=== PATIENT | female | born 1950 | race Caucasian/White ===

== ENCOUNTER 2018-01-06 15:06 | Emergency (ER) | payer BC, MEDICARE ==
[2018-01-06] MEDS ORDERED: Ondansetron 4 MG/2 ML SDV IVPUSH ONE (15:26)
[2018-01-06] MEDS ORDERED: Ketorolac 30 MG/ML SDV IVPUSH ONE (15:26)
[2018-01-06] MEDS ORDERED: SUMAtriptan 6 MG/0.5 ML SDV SUBCUT ONE (15:31)
--- NOTE | 2018-01-06 15:41 | EDM.PDOC ---
ED HPI GENERAL MEDICAL PROBLEM - General Chief Complaint: Gastrointestinal Problem Stated Complaint: HEADACHE, VOMITING, NAUSEA, GAS Time Seen by Provider: 01/06/18 15:10 Source of Information: Reports: Patient, Family History Limitations: Reports: No Limitations - History of Present Illness INITIAL COMMENTS - FREE TEXT/NARRATIVE: 67 y.o.w.f came to the due to H/A and photophobia. Pt was transferred to the ed because his SBP was 185 at he clinic. Pt's last BP was taken 6 weeks ago. At that time her BP was 130.70. Pt is nauseated since Sunday and had poor po intake since then. He headache is located at her left forehead. Pt had Migraine H/A in the past. Pt did not take anything for pain/HTN. No trauma. No other acute medical issues. BP 189/98 Pulse 74 RR 18 Temp 36.6 Pulse ox 98% on RA. Onset Date: 01/04/18 Onset Time: 10:00 Duration: Day(s):, Intermittent Location: Reports: Abdomen Quality: Reports: Ache, Burning Severity: Moderate Improves with: Reports: Medication, Rest Worsens with: Reports: Movement Context: Reports: Other - Related Data Allergies Allergy/AdvReac Type Severity Reaction Status Date / Time Sulfa (Sulfonamide Allergy Rash Verified 01/06/18 15:25 Antibiotics) Home Meds: Home Meds FLUoxetine [PROzac] 20 mg PO DAILY 05/09/16 [History] Simvastatin 10 mg PO DAILY 05/09/16 [History] Acetaminophen [Tylenol Extra Strength] 500 mg PO ASDIRECTED PRN 05/10/16 [ History] Losartan [Cozaar] 25 mg PO DAILY #10 tab 01/06/18 [Rx] Metoclopramide HCl [Reglan] 10 mg PO DAILY PRN #10 tablet 01/06/18 [Rx] Omeprazole 20 mg PO DAILY 01/06/18 [History] Past Medical History HEENT History: Reports: Impaired Vision Cardiovascular History: Reports: High Cholesterol 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 ASSISTANT History: SYMPTOMATIC MENOPAUSAL STATE Other Neuro History: MIGRAINES Psychiatric History: Reports: Depression - Infectious Disease History Infectious Disease History: Reports: Chicken Pox, Measles, Mumps - Past Surgical History Female Surgical History: Reports: Section Male Surgical History: Reports: Other (See Below) Social & Family History - Caffeine Use Caffeine Use: Reports: Coffee, Soda ED ROS GENERAL - Review of Systems Review Of Systems: See Below Constitutional: Reports: Weakness HEENT: Reports: No Symptoms Respiratory: Reports: No Symptoms Cardiovascular: Reports: Blood Pressure Problem Endocrine: Reports: No Symptoms GI/Abdominal: Reports: Nausea (no vomiting) : Reports: No Symptoms Musculoskeletal: Reports: No Symptoms Skin: Reports: No Symptoms Neurological: Reports: No Symptoms Psychiatric: Reports: No Symptoms Hematologic/Lymphatic: Reports: No Symptoms Immunologic: Reports: No Symptoms ED EXAM, GI/ABD - Physical Exam Exam: See Below Exam Limited By: No Limitations General Appearance: Alert, WD/WN, Moderate Distress Eyes: Bilateral: Normal Appearance Ears: Normal External Exam Nose: Normal Inspection Throat/Mouth: Normal Inspection, Normal Lips, Normal Voice, No Airway Compromise Head: Atraumatic, Normocephalic Neck: Normal Inspection, Supple, Non-Tender, Full Range of Motion Respiratory/Chest: No Respiratory Distress, Lungs Clear, Normal Breath Sounds, Chest Non-Tender Cardiovascular: Normal Peripheral Pulses, Regular Rate, Rhythm, No Edema, No Gallop, No Murmur GI/Abdominal Exam: Normal Bowel Sounds, Soft, Non-Tender, No Abnormal Bruit (Female) Exam: Deferred Rectal (Female) Exam: Deferred Back Exam: Normal Inspection, Full Range of Motion Extremities: Normal Inspection, Normal Range of Motion, Non-Tender, No Pedal Edema Neurological: Alert, Oriented, CN II-XII Intact, Normal Cognition, Normal Gait Psychiatric: Normal Affect, Normal Mood Skin Exam: Warm, Dry, Intact, Normal Color, No Rash Lymphatic: No Adenopathy Course - Vital Signs Text/Narrative:: 67 y.o.w.f came to the due to H/A and photophobia. Pt was transferred to the ed because his SBP was 185 at he clinic. Pt's last BP was taken 6 weeks ago. At that time her BP was 130.70. Pt is nauseated since Sunday and had poor po intake since then. He headache is located at her left forehead. Pt had Migraine H/A in the past. Pt did not take anything for pain/HTN. No trauma. Not worst H/ A. No other acute medical issues. BP 189/98 Pulse 74 RR 18 Temp 36.6 Pulse ox 98 % on RA. PE: WNWD W F with photophobie, Headache, photophobia and nause. Imaging: Not indicated Labs: CBC wnl, Neutrphills are 84%. BMP was nl, UA was pos for microcytic hematuria Impression: HTN, Migraine H/A. Microcytic hematuria Tx: Zofran, Reglan. Toradol, Imitrex. Labetolol Reexam: H/A and nausea subsided, BP improved to 143/72 Plan: D/C with instructions Last Recorded V/S: Last Vital Signs Temp 36.9 C 01/06/18 15:10 Pulse 74 01/06/18 15:10 Resp 16 01/06/18 15:10 BP 189/98 H 01/06/18 15:10 Pulse Ox 98 01/06/18 15:10 - Orders/Labs/Meds Orders: Active Orders 24 hr Category Date Time Status UA W/MICROSCOPIC [URIN] Stat Lab 01/06/18 17:00 Ordered Labs: Laboratory Tests 01/06/18 01/06/18 01/06/18 Range/Units 15:35 15:35 17:00 WBC 5.8 (4.5-12.0) X10-3/uL RBC 4.29 (3.23-5.20) x10(6)uL Hgb 12.9 D (11.5-15.5) g/dL Hct 38.0 D (30.0-51.3) % MCV 88.7 (80-96) fL MCH 30.1 (27.7-33.6) pg MCHC 33.9 (32.2-35.4) g/dL RDW 12.8 (11.5-15.5) % Plt Count 287 (125-369) X10(3)uL MPV 8.2 (7.4-10.4) fL Neut % (Auto) 84.5 H (46-82) % Lymph % (Auto) 12.2 L (13-37) % Tucker % (Auto) 3.1 L (4-12) % Eos % (Auto) 0 L (1.0-5.0) % Baso % (Auto) 0 (0-2) % Neut # (Auto) 4.9 (1.6-8.3) # Lymph # (Auto) 0.7 (0.6-5.0) # Tucker # (Auto) 0.2 (0.0-1.3) # Eos # (Auto) 0.0 (0.0-0.8) # Baso # (Auto) 0.0 (0.0-0.2) # Sodium 138 (135-145) mmol/L Potassium 4.6 (3.5-5.3) mmol/L Chloride 100 (100-110) mmol/L Carbon Dioxide 26 (21-32) mmol/L BUN 12 (7-18) mg/dL Creatinine 0.7 (0.55-1.02) mg/dL Est Cr Clr Drug Dosing 67.34 mL/min Estimated GFR (MDRD) > 60 (>60) BUN/Creatinine Ratio 17.1 (9-20) Glucose 108 (80-116) mg/dL Calcium 8.9 (8.6-10.2) mg/dL Urine Color Yellow (YELLOW) Urine Appearance Clear (CLEAR) Urine pH 5.0 (5.0-6.5) Ur Specific [place] 1.020 (1.010-1.025) Urine Protein Negative (NEGATIVE) mg/dL Urine Glucose (UA) Normal (NEGATIVE) mg/dL Urine Ketones 150 H (NEGATIVE) mg/dL Urine Occult Blood Moderate H (NEGATIVE) Urine Nitrite Negative (NEGATIVE) Urine Bilirubin Negative (NEGATIVE) Urine Urobilinogen Normal (NEGATIVE) mg/dL Ur Leukocyte Esterase Negative (NEGATIVE) Urine RBC 5-10 (0) Urine WBC 0-5 (0) Ur Squamous Epith Cells Occasional (NS,R,O) Urine Bacteria Few H (NS) Urine Mucus Few H (NS) Meds: Medications Discontinued Medications Generic Name Dose Route Start Last Admin Trade Name Freq PRN Reason Stop Dose Admin Ketorolac Tromethamine 15 mg 01/06/18 15:26 01/06/18 15:35 Toradol IVPUSH 01/06/18 15:27 15 mg ONETIME ONE Administration Labetalol HCl 10 mg 01/06/18 16:51 01/06/18 17:07 Normodyne IVPUSH 01/06/18 16:52 10 mg ONETIME ONE Administration Protocol Metoclopramide HCl 10 mg 01/06/18 16:08 01/06/18 16:14 Reglan IVPUSH 01/06/18 16:09 10 mg ONETIME ONE Administration Ondansetron HCl 8 mg 01/06/18 15:26 01/06/18 15:35 Zofran IVPUSH 01/06/18 15:27 8 mg ONETIME ONE Administration Sumatriptan Succinate 6 mg 01/06/18 15:31 01/06/18 15:40 Imitrex SUBCUT 01/06/18 15:32 6 mg ONETIME ONE Administration Departure - Departure Time of Disposition: 17:38 Disposition: Home, Self-Care 01 Condition: Good Clinical Impression: Microscopic hematuria Hypertension Qualifiers: Hypertension type: unspecified Qualified Code(s): I10 - Essential (primary) hypertension Migraine Qualifiers: Migraine type: unspecified Status migrainosus presence: without status migrainosus Intractability: not intractable Qualified Code(s): G43.909 - Migraine, unspecified, not intractable, without status migrainosus - Discharge Information Prescriptions: Losartan [Cozaar] 25 mg PO DAILY #10 tab Metoclopramide HCl [Reglan] 10 mg PO DAILY PRN #10 tablet PRN Reason: nausea, vomoiting Instructions: Migraine Headache, [id number], Hypertension, [id number] Referrals: Yo Lay MD [Primary Care Provider] - Forms: ED Department Discharge Additional Instructions: Please check your BP twice daily, take Losarton daily, hold losarton if your systolic BP is 120 or below 120. Please take Reglan for nausea. Please f/u with your PMD, please recheck the urin in 3 days. Please come back if your symptoms get worse acutely - My Orders Last 24 Hours: My Active Orders 01/06/18 17:00 UA W/MICROSCOPIC [URIN] Stat - Assessment/Plan Last 24 Hours: My Active Orders 01/06/18 17:00 UA W/MICROSCOPIC [URIN] Stat
[2018-01-06] MEDS ORDERED: Metoclopramide 10 MG/2 ML SDV IVPUSH ONE (16:08)
[2018-01-06] MEDS ORDERED: Labetalol 20 MG/4 ML Syringe IVPUSH ONE (16:51)
[2018-01-06] MEDS ORDERED: Ondansetron 4 MG Tab.DIS PO ONE (17:53)
[2018-01-06 19:31] VITALS: BP 153/78
== END 2018-01-06 17:55 | disposition home or self-care (01) ==
LOC: FB.ED 15:06
DX: G43.909 Migraine, unspecified, not intractable, without status migrainosus (principal); R31.29 Other microscopic hematuria; E78.00 Pure hypercholesterolemia, unspecified; I10 Essential (primary) hypertension; Z88.2 Allergy status to sulfonamides; Z79.899 Other long term (current) drug therapy
CPT/HCPCS: 36415; 80048; 81001; 85025; 96372; 96374; 96375; 99284; A9270; J1885; J2405; J2765; J3030

== ENCOUNTER 2023-08-20 10:00 | Emergency (ER) | payer MEDICARE ==
[2023-08-20 10:39] LABS: BASOPHILS PERCENT AUTO 0.3 % (0.2-1.5); EOSINOPHILS ABSOLUTE AUTO 0.1 x10-3/uL (0.0-0.8); HEMATOCRIT 39.6 % (34.2-48.2); HEMOGLOBIN 13.4 g/dL (11.4-15.5); LYMPHOCYTES ABSOLUTE AUTO 1.3 x10-3/uL (1.0-4.4); MEAN CORPUSCULAR HEMOGLOBIN 31.1 pg (23.9-33.9); MEAN CORPUSCULAR HGB CONC 33.9 g/dL (31.9-34.8); MEAN PLATELET VOLUME 7.7 fL (7.1-12.4); MONOCYTES ABSOLUTE AUTO 0.5 x10-3/uL (0.3-1.0); MONOCYTES PERCENT AUTO 6.9 % (4.4-15.7); NEUTROPHILS ABSOLUTE AUTO 5.8 x10-3/uL (1.5-6.3); NEUTROPHILS PERCENT AUTO 74.8 % (30.8-76.2); PLATELET COUNT,PLT 295 x10(3)uL (151-488); RED BLOOD CELL COUNT 4.31 x10(6)uL (3.60-5.20); RED CELL DISTRIBUTION WIDTH 13.3 % (12.3-16.5); WHITE BLOOD CELL COUNT,WBC 7.7 x10-3/uL (3.0-10.3)
[2023-08-20] MEDS: Sodium Chloride 0.9% 1,000 ML IV ONE (10:39)
[2023-08-20 10:40] LABS: BLOOD UREA NITROGEN,BUN 12 mg/dL (7-18); BUN/CREATININE RATIO 10.9 (9-20); CALCIUM 9.5 mg/dL (8.6-10.2); CARBON DIOXIDE,CO2 28 mmol/L (21-32); CHLORIDE,CL 101 mmol/L (100-110); CREATININE 1.1 mg/dL (0.55-1.02); ESTIMATED GFR 53 mL/min (>60); GLUCOSE RANDOM 118 mg/dL (80-116); POTASSIUM,K 4.2 mmol/L (3.5-5.3); SODIUM,NA 138 mmol/L (135-145)
[2023-08-20] MEDS: Ondansetron 4 MG/2 ML SDV IVPUSH ONE (10:40)
[2023-08-20 10:52] LABS: ALANINE AMINOTRANSFERASE,ALT 24 U/L (12-36); ALBUMIN 3.6 g/dL (3.2-4.6); ALKALINE PHOSPHATASE 87 IU/L (56-112); ASPARTATE AMNIOTRANSFERASE,AST 19 IU/L (5-25); PROTEIN TOTAL,TP 7.2 g/dL (6.0-8.0)
[2023-08-20] MEDS: Albuterol/Ipratropium 3.0-0.5 MG/3 ML Neb Soln NEB ONE (11:10)
[2023-08-20 11:18] VITALS: BP 153/91; PULSE 84
[2023-08-20 11:23] LABS: CORONAVIRUS COVID-19 NAA NEGATIVE (NEGATIVE); INFLUENZA A NAA NEGATIVE (NEGATIVE); INFLUENZA B NAA NEGATIVE (NEGATIVE); RESPIRATORY SYNCYTIAL VIR NAA POSITIVE (NEGATIVE)
[2023-08-20] MEDS: methylPREDNISolone Sodium Succinate 125 MG/2 ML SDV IVPUSH ONE (12:30)
[2023-08-20] MEDS: methylPREDNISolone Sodium Succinate 125 MG/2 ML SDV IM ONE (12:52)
== END 2023-08-20 13:20 | disposition home or self-care (01) ==
LOC: FB.ED 10:00
DX: J21.0 Acute bronchiolitis due to respiratory syncytial virus (principal); E78.00 Pure hypercholesterolemia, unspecified; Z88.2 Allergy status to sulfonamides; Z79.899 Other long term (current) drug therapy
CPT/HCPCS: 0241U; 71045; 80053; 85025; 94640; 96361; 96374; 96375; 99284; J2405; J2930; J7030; J7620